=== PATIENT | male | born 1955 | race Caucasian/White ===

== ENCOUNTER 2023-02-19 10:28 | Outpatient (REF) | payer BC, SELFPAY ==
--- NOTE | ~2023-02-19 | US_ITS ---
EXAMINATION: US RETROPERITONEAL LIMITED (AORTA) CLINICAL INFORMATION: Abnormal mass right of umbilicus. History of smoking. COMPARISON: None available. TECHNIQUE: Richardson-scale, color Doppler and spectral Doppler evaluation of the abdominal aorta and area to the right of the umbilicus. FINDINGS: The aorta is normal. The measurements of the aorta in maximum AP and transverse dimensions respectively are as follows: Proximal: 2.6 x 2.4 cm. Mid: 2.4 x 2.6 cm. Distal: 2.2 x 2.6 cm. PSV: 93.0 cm/s. The measurements of the common iliac arteries in maximum AP and TRV dimensions are as follows: Right Common Iliac Artery: 1.5 x 1.2 cm. Left Common Iliac Artery: 1.3 x 1.7 cm. ADDITIONAL FINDINGS: The patient directed the local sales associate to the area of concern around the umbilicus. No discrete abnormality is seen. No hernia is seen. US/US abdominal aortic aneurysm IMPRESSION: Negative for abdominal aortic aneurysm. No discrete sonographic abnormality is seen in the area of clinical concern.
== END 2023-02-19 10:29 | disposition home or self-care (01) ==
LOC: HO.UMASIMG 10:28
PROVIDERS: PCP Family Medicine; Visit Provider Family Medicine
DX: Z13.6 Encounter for screening for cardiovascular disorders (principal); I10 Essential (primary) hypertension; R22.9 Localized swelling, mass and lump, unspecified
CPT/HCPCS: 76706